=== PATIENT | male | born 1990 | race Caucasian/White ===

== ENCOUNTER 2020-07-24 20:32 | Inpatient (IN) | payer OTHER, SELFPAY ==
--- NOTE | ~2020-07-24 | CT_ITS ---
EXAMINATION: CT abdomen pelvis w con INDICATION: Right lower quadrant pain TECHNIQUE: Computed tomographic images of the abdomen and pelvis were obtained after the administrati on of 100 cc of Omnipaque 350 intravenous contrast. The dose-length product (DLP) was 653.72 mGy-cm. Automated exposure control and iterative reconstruction technique were employed. COMPARISON: None available FINDINGS: The lung bases are clear. The heart size is normal. The liver, spleen, pancreas, gallbladde r, and adrenal glands are normal. The kidneys are unremarkable. The appendix is dilated up to 1.5 cm at its base. There is edematous stranding of the periappendiceal fat. A small volume of pelvic ascite s is noted. There is no free intraperitoneal gas or evidence of bowel obstruction. No pathologically enlarged abdominal or pelvic lymph nodes are identified. A moderate volume of colonic stool is presen t. IMPRESSION: 1. Acute appendicitis, uncomplicated. Recommend surgical evaluation. Reviewed, dictated and finalized at location A.
[2020-07-24 20:35] VITALS: BP 149/86; PULSE 77; RESP 20; TEMP 36.6; O2SAT 100
[2020-07-24 20:54] LABS: Basophils Percent Auto 0.3 % (0.2-1.2); Eosinophils Absolute Auto 0.1 K/mm3 (0-0.3); Eosinophils Percent Auto 0.6 % (0-4.4); Hematocrit 47.3 % (42.0-52.0); Hemoglobin 16.3 g/dL (14.0-18.0); Immature Granulocyte Absolute 0.03 K/mm3 (0.00-0.031); Immature Granulocyte Percent A 0.3 % (0-0.5); Lymphocytes Absolute Auto 2.42 K/mm3 (0.9-3.2); Lymphocytes Percent Auto 22.1 % (18.3-44.2); Mean Corpuscular HGB Conc 34.5 g/dl (32-36); Mean Corpuscular Hemoglobin 30.3 pg (26-34); Mean Corpuscular Volume 87.9 fl (80-100); Mean Platelet Volume 9.4 fl (7.4-10.4); Monocytes Absolute Auto 0.9 K/mm3 (0.1-0.6); Monocytes Percent Auto 7.8 % (2.6-8.5); Neutrophils Absolute Auto 7.5 K/mm3 (1.3-6.7); Neutrophils Percent Auto 68.9 % (45.5-73.1); Platelet Count Result 254 k/mm3 (150-375); Red Blood Count 5.38 M/mm3 (4.6-6.20); Red Cell Distribution Width 12.9 % (11.5-14.5); White Blood Count 10.9 K/mm3 (4.5-10.0)
[2020-07-24 21:06] LABS: Alanine Aminotransferase 11 U/L (4-50); Albumin Level 4.7 g/dL (3.5-5.1); Alkaline Phosphatase 71 U/L (38-126); Anion Gap 7 mmol/L (8-16); Aspartate Amino Transferase 23 U/L (17-59); Bilirubin,Total 0.4 mg/dL (0.2-1.3); Blood Urea Nitrogen 15 mg/dL (9-20); Calcium 9.6 mg/dL (8.4-10.2); Carbon Dioxide 34 mmol/L (22-30); Chloride 101 mmol/L (98-107); Estimated CRCL calculation 115 ml/min; Estimated Glomerular Filt Rate > 60; Glucose 83 mg/dL (75-110); Lipase 86 U/L (23-300); Potassium 4.6 mmol/L (3.4-5.0); Sodium 142 mmol/L (137-145)
--- NOTE | 2020-07-24 22:32 | ED.ABDPAIN ---
HPI - Abdominal Pain General Chief Complaint: Abdominal Pain Stated Complaint: Abd Pain Time Seen by Provider: 07/24/20 22:27 History of Present Illness HPI narrative: RLQ abdomianl pain for the past 2-3 days. Moderate at rest. Worse with movement or pressure. Associated with mild nausea. He has never had this pain before. Previous umbilical hernia repair as a small child. Related Data Home Medications Medication Instructions Recorded Confirmed No Home Medications 07/24/20 07/24/20 Allergies Allergy/AdvReac Type Severity Reaction Status Date / Time No Known Allergies Allergy Verified 07/24/20 22:39 Review of Systems Review of Systems: All systems reviewed & are unremarkable except as noted in HPI and below Constitutional: Constitutional: Denies fever(s) Cardiovascular: Cardiovascular: Denies chest pain Respiratory: Respiratory: Denies dyspnea Gastrointestinal: Gastrointestinal: Reports abdominal pain, Denies constipation, Denies diarrhea, Reports nausea and Denies vomiting Genitourinary: Genitourinary: Denies hematuria and Denies dysuria Musculoskeletal: Musculoskeletal: Denies back pain Neurologic: Denies dizziness and Denies weakness PMFSH Surgical History Surgical History (Updated 07/25/20 @ 02:41 by Virgil Perales MD) H/O umbilical hernia repair Social History Social History (Updated 07/25/20 @ 02:41 by Virgil Perales MD) Smoking status: Never smoker Exam Const: General: healthy appearing, no acute distress and alert Nutritional Appearance: well nourished Orientation/consciousness: patient oriented x3 HENMT: Head: normal to inspection Resp: Effort & Inspection: normal respiratory effort Auscultation: clear to auscultation bilaterally, no rales, no rhonchi and no wheezes Cardio: Jugular venous distension: no JVD Rate: regular rate Rhythm: regular rhythm Heart sounds: no murmurs GI: Inspection: non-distended GI Palp: Yes Soft to palpation and Yes Tenderness to palpation present (GI) (RLQ) Skin: General skin exam: normal color Neuro: General: patient oriented x3, moves all extremities and CN's II-XI intact bilaterally Speech: normal speech Extrem: General: normal to inspection Psych: Appearance: well kempt Affect: normal affect Course Vital Signs Vital signs: Vital Signs Temperature 36.6 C 07/24/20 20:35 Pulse Rate 77 07/24/20 20:35 Respiratory Rate 20 07/24/20 20:35 Blood Pressure 149/86 H 07/24/20 20:35 Pulse Oximetry 100 07/24/20 20:35 Temperature 36.6 C 07/24/20 20:35 Pulse Rate 57 L 07/25/20 01:53 Respiratory Rate 16 07/25/20 01:53 Blood Pressure 121/76 07/25/20 01:53 Pulse Oximetry 97 07/25/20 01:53 MDM - Abdominal Pain Differential Diagnosis Differential diagnosis: Likely acute appendicitis, calculus of kidney and constipation Medical Records Attestation: I reviewed the patient's medical records. Lab Data Attestation: I reviewed the patient's lab results. Result diagrams: 07/24/20 20:38 07/24/20 20:38 Labs: Lab Results 07/24/20 07/24/20 07/24/20 Range/Units 20:38 20:38 22:41 WBC 10.9 H (4.5-10.0) K/mm3 RBC 5.38 (4.6-6.20) M/mm3 Hgb 16.3 (14.0-18.0) g/dL Hct 47.3 (42.0-52.0) % MCV 87.9 (80-100) fl MCH 30.3 (26-34) pg MCHC 34.5 (32-36) g/dl RDW 12.9 (11.5-14.5) % Plt Count 254 (150-375) k/mm3 MPV 9.4 (7.4-10.4) fl Immature Gran % (Auto) 0.3 (0-0.5) % Neut % (Auto) 68.9 (45.5-73.1) % Lymph % (Auto) 22.1 (18.3-44.2) % [place] % (Auto) 7.8 (2.6-8.5) % Eos % (Auto) 0.6 (0-4.4) % Baso % (Auto) 0.3 (0.2-1.2) % Lymph # (Auto) 2.42 (0.9-3.2) K/mm3 [place] # (Auto) 0.9 H (0.1-0.6) K/mm3 Eos # (Auto) 0.1 (0-0.3) K/mm3 Baso # (Auto) 0.0 (0.0-0.1) K/mm3 Abs Immat Gran (auto) 0.03 (0.00-0.031) K/mm3 Absolute Neuts (auto) 7.5 H (1.3-6.7) K/mm3 Absolute Nucleated RBC 0.0 (0.
[2020-07-24 22:37] VITALS: BP 133/80; PULSE 60; RESP 16; O2SAT 99
[2020-07-24 22:53] LABS: Add Urine Microscopic? NO; Appearance Urine Clear (Clear); Bilirubin Urine Negative (Negative); Blood Urine Negative (Negative); Color Urine Yellow (Yellow); Glucose Urine UA Negative (Negative); Ketones Urine Negative (Negative); Leukocyte Esterase Ur Negative LEU/UL (Negative); Mucus Urine Heavy /lpf; Nitrate Urine Negative (Negative); Protein Urine Negative (Negative); RBC Urine 0-2 /hpf (0-2); Specific Grav Ur 1.024 (1.001-1.035); Urobilinogen Urine Negative mg/dL (<2.0); WBC Urine 0-3 /hpf
[2020-07-24 23:30] VITALS: BP 137/73; PULSE 56; RESP 16; O2SAT 99
[2020-07-25] VITALS (12 sets, daily range): BP systolic 110–159; BP diastolic 52–82; PULSE 57–86; RESP 12–20; TEMP 36.4–36.8; O2SAT 94–100; BMI 31.6
[2020-07-25] MEDS: MORPHINE SULFATE (*CRX) 4 MG/ML INJ IV PUSH ×5 (00:46→11:47)
[2020-07-25] MEDS: LACTATED RINGERS 1,000 ML 125 ML IV CONT ×2 (00:47→09:44)
--- NOTE | 2020-07-25 02:05 | PC.NURSE ---
This patient, Jet Ramos, was admitted to [facility] Surg Room 314-01. Patient/family oriented to hospital policies and general routines including ID bracelet, bed and alarms, visiting hours, pain management, procedures, bathroom and other care routines, personal items, smoking policy, room service/diet, and visiting hours. Valuables list has been completed. Information on how to activate the Rapid Response Team has been discussed. Patient/Family are encouraged to report perceived risks to care and to ask questions if they do not understand what they are told or what they should do.
--- NOTE | 2020-07-25 09:30 | PM.IMHP ---
H&P: HPI History of Present Illness Date/Time: 07/25/20 09:30 Chief complaint: Acute appendicitis Narrative: Jet Ramos is a 30 year old male presenting c 2-3 day h/o worsening RLQ abd pain. Pt reports pain initially more mild and diffuse, but now localized to RLQ. Pt reports pain is constant but worse c movement. Pt denies any fevers, chills, nausea, but has had some decreased appetite. Pt denies any bowel changes. Pt denies any previous episodes. Review of Systems Constitutional: Constitutional: Denies anorexia, Denies body ache(s), Denies chills, Denies fatigue, Denies fever(s), Denies headache(s), Denies lethargy, Denies malaise, Reports poor appetite, Denies weight gain and Denies weight loss Eyes: Eyes: Denies change in vision ENT: Denies headache(s), Denies hearing loss and Denies sore throat Cardiovascular: Cardiovascular: Denies chest pain, Denies palpitations and Denies dyspnea Respiratory: Respiratory: Denies cough and Denies dyspnea Gastrointestinal: Gastrointestinal: Reports abdominal pain, Denies change in stool character, Denies constipation, Denies diarrhea, Denies nausea and Denies vomiting Genitourinary: Genitourinary: Denies dysuria, Denies urinary frequency and Denies urinary urgency Musculoskeletal: Musculoskeletal: Reports no additional musculoskeletal complaints Integumentary/Breasts: Skin/Breast: Denies pruritus, Denies lesions and Denies wounds Neurologic: Denies confusion and Denies headache(s) Psychiatric: Psychiatric: Reports no additional psychiatric complaints and Denies confusion Endocrine: Endocrine: Reports no additional endocrine complaints, Denies fatigue and Denies palpitations Hematologic/Lymphatic: Hematologic/Lymphatic: Reports no additional hematologic/lymphatic complaints Allergic/Immunologic: Allergic/Immunologic: Reports no additional allergic/immunologic complaints [facility] Surgical History Surgical History H/O umbilical hernia repair Family History Family History Father Hypertension Social History Social History Smoking status: Never smoker Tobacco type: cigars Alcohol intake: current Drinks per week: 2 Substance use: never Gender identity (if verbalized by the patient): Male Sexual Orientation (if Verbalized by the Patient): Straight or Heterosexual Spiritual care concerns: No Meds Home Medications and Allergies Home Medications Medication Instructions Recorded Confirmed Type No Home Medications 07/24/20 07/24/20 History Allergies Allergy/AdvReac Type Severity Reaction Status Date / Time No Known Allergies Allergy Verified 07/24/20 22:39 Vital Signs Vital Signs - 24 hr 07/24/20 20:35 07/24/20 22:37 07/24/20 23:30 Temperature 36.6 C Pulse Rate 77 60 56 L Respiratory Rate 20 16 16 Blood Pressure 149/86 H 133/80 137/73 Pulse Oximetry 100 99 99 07/25/20 01:53 07/25/20 02:00 07/25/20 06:00 Temperature 36.4 C 36.7 C Pulse Rate 57 L 60 58 L Respiratory Rate 16 20 20 Blood Pressure 121/76 110/60 110/52 L Pulse Oximetry 97 96 98 Exam Const: General: cooperative, healthy appearing, no acute distress and well developed; No confusion Orientation/consciousness: patient oriented x3 and No confusion HENMT: Head: normal to inspection, normocephalic and atraumatic Mouth: Yes Normal oral and palatal mucosa present and Yes moist mucous membranes Teeth and gingiva: dentition normal Eyes: Conjunctivae: conjunctivae normal Pupils: Equal, round and reactive pupils present EOM: EOMs intact bilaterally Neck: Neck: normal visual inspection, full ROM, no lymphadenopathy, trachea midline and supple Lymphatic: no lymphadenopathy noted Chest: Chest palpation & inspection: normal inspection of the chest Resp: Effort & Inspection: normal respiratory effort
[2020-07-25] MEDS: fentaNYL CITRATE INJ (*CRX) 100 MCG/2 ML VIAL 50 MCG IV PUSH (13:23)
[2020-07-25] MEDS: LACTATED RINGERS 1,000 ML 30 ML IV CONT ×2 (13:23→16:10)
[2020-07-25] MEDS: KETOROLAC 15 MG/ML VIAL (*BKC) IV PUSH (13:25)
--- NOTE | 2020-07-25 14:22 | WPDANESEPPF ---
Anes - Initial Pre Proc Eval Procedure: Operation Date: 07/25/20 14:00 Proposed Procedures p Laparoscopic Appendectomy - Richard Thomas DO Date/Time: 07/25/20 14:22 Surgeon: Gayle Spear MD Pre Op Diagnosis: Acute appendicitis Patient Data Age: 30 Gender: M Height: 5 ft 7 in Weight: 91.5 kg Last Vital Signs Temp 36.5 C 07/25/20 13:06 Pulse 66 07/25/20 13:06 Resp 18 07/25/20 13:06 BP 128/70 07/25/20 13:06 Pulse Ox 99 07/25/20 13:06 Allergies Allergy/AdvReac Type Severity Reaction Status Date / Time No Known Allergies Allergy Verified 07/25/20 13:31 Home Medications Medication Instructions Recorded Confirmed Type No Home Medications 07/24/20 07/24/20 History Laboratory Tests 07/24/20 07/24/20 07/24/20 20:38 20:38 22:41 WBC 10.9 K/mm3 H K/mm3 (4.5-10.0) RBC 5.38 M/mm3 M/mm3 (4.6-6.20) Hgb 16.3 g/dL g/dL (14.0-18.0) Hct 47.3 % % (42.0-52.0) MCV 87.9 fl fl (80-100) MCH 30.3 pg pg (26-34) MCHC 34.5 g/dl g/dl (32-36) RDW 12.9 % % (11.5-14.5) Plt Count 254 k/mm3 k/mm3 (150-375) MPV 9.4 fl fl (7.4-10.4) Immature Gran % (Auto) 0.3 % % (0-0.5) Neut % (Auto) 68.9 % % (45.5-73.1) Lymph % (Auto) 22.1 % % (18.3-44.2) [place] % (Auto) 7.8 % % (2.6-8.5) Eos % (Auto) 0.6 % % (0-4.4) Baso % (Auto) 0.3 % % (0.2-1.2) Lymph # (Auto) 2.42 K/mm3 K/mm3 (0.9-3.2) [place] # (Auto) 0.9 K/mm3 H K/mm3 (0.1-0.6) Eos # (Auto) 0.1 K/mm3 K/mm3 (0-0.3) Baso # (Auto) 0.0 K/mm3 K/mm3 (0.0-0.1) Abs Immat Gran (auto) 0.03 K/mm3 K/mm3 (0.00-0.031) Absolute Neuts (auto) 7.5 K/mm3 H K/mm3 (1.3-6.7) Absolute Nucleated RBC 0.0 K/mm3 K/mm3 (0.0-0.012) Nucleated RBC % 0.0 % % (0.0-0.2) Sodium 142 mmol/L mmol/L (137-145) Potassium 4.6 mmol/L mmol/L (3.4-5.0) Chloride 101 mmol/L mmol/L (98-107) Carbon Dioxide 34 mmol/L H mmol/L (22-30) Anion Gap 7 mmol/L L mmol/L (8-16) BUN 15 mg/dL mg/dL (9-20) Creatinine 0.90 mg/dL mg/dL (0.7-1.3) Estim Creat Clear Calc 115 ml/min ml/min Estimated GFR > 60 (59 - ) Glucose 83 mg/dL mg/dL (75-110) Calcium 9.6 mg/dL mg/dL (8.4-10.2) Total Bilirubin 0.4 mg/dL mg/dL (0.2-1.3) AST 23 U/L U/L (17-59) ALT 11 U/L U/L (4-50) Alkaline Phosphatase 71 U/L U/L (38-126) Total Protein 7.0 g/dL g/dL (6.3-8.2) Albumin 4.7 g/dL g/dL (3.5-5.1) Lipase 86 U/L U/L (23-300) Urine Color Yellow (Yellow) Urine Appearance Clear (Clear) Urine pH 6.0 (5.0-9.0) Ur Specific [place] 1.024 (1.001-1.035) Urine Protein Negative mg/dL mg/dL (Negative) Urine Glucose (UA) Negative mg/dL mg/dL (Negative) Urine Ketones Negative mg/dL mg/dL (Negative) Ur Blood (Man) Negative (Negative) Urine Nitrate Negative (Negative) Urine Bilirubin Negative (Negative) Urine Urobilinogen Negative mg/dL mg/dL (<2.0) Leukocyte Esterase Rfl Negative YARELI/UL YARELI/UL (Negative) Urine RBC 0-2 /hpf /hpf (0-2) Urine WBC 0-3 /hpf /hpf Urine Mucus Heavy /lpf H /lpf Patient hx anesthesia problems: none Family hx anesthesia problems: none [facility] Past Medical History Medical History (Updated 07/25/20 @ 14:22 by Cain Meadows MD) Obesity Surgical History Surgical History H/O umbilical hernia repair Family History Family History Father Hypertension Soci
--- NOTE | 2020-07-25 14:47 | WPDHPUPDATE1 ---
History and Physical Update Update Date/Time: 07/25/20 14:47 History and Physical has been reviewed, including an updated exam of the patient. There are NO changes in the patient's condition. Risks, benefits, and alternatives have been discussed and questions answered. Patient agrees to proceed with procedure.
[2020-07-25] MEDS: BUPIVACAINE/EPINEPHRINE 0.5% 10 ML VIAL 30 ML INFILTRATE (15:32)
--- NOTE | 2020-07-25 16:10 | PM.PROC ---
Procedure Note - Detailed Date of procedure: 07/25/20 Pre-op diagnosis: Acute appendicitis Post-op diagnosis: same Procedure performed: Laparoscopic Appendectomy Description of procedure: Procedure as well as risks, benefits, and alternatives were explained to the patient. The patient agreed to proceed. Written consent was obtained and placed in chart prior to procedure. The patient was brought back to surgical suite. He was placed supine on operating table. Time-out was done to confirm the patient and procedure. The patient was then intubated by the Anesthesia Department. His abdomen was prepped and draped in sterile fashion using chlorhexidine prep. A 12 mm incision was made at the inferior portion of the umbilicus. Blunt dissection was carried out down to the linea alba. The linea alba was then incised using a 15 blade scalpel. Then bluntly entered into the peritoneal cavity. A 12 mm trocar was then inserted, and carbon dioxide insufflation was used to create a pneumoperitoneum. The camera was inserted and the abdomen was inspected. No immediate abnormalities were identified. The patient was then placed in slight Trendelenburg position and rotated to the left. A 5 mm incision was made in the suprapubic region in midline and a 5 mm trocar was inserted under direct visualization. A 5 mm incision was made in the left lower quadrant and a 5 mm trocar was inserted under direct visualization. The right lower quadrant was carefully inspected. The cecum was identified and then this was traced back to the appendix. The appendix was identified and grasped at the mesoappendix and lifted anteriorly. Careful blunt dissection was carried out at the base of the appendix through the mesoappendix using a [place] grasper. An Endo-JUAN CARLOS 45 mm blue load stapler was then advanced across the base of the appendix and clamped and fired. A white reload was then clamped across the mesoappendix and fired. This freed up our appendix completely. It was then placed in an EndoCatch bag and removed through the left lower quadrant port. The staple lines were then inspected. Hemostasis appeared adequate and the staple lines appeared secure. The area was then irrigated with sterile saline. The pelvis was then carefully inspected and irrigated with sterile saline as well and the remainder of the abdomen was carefully inspected. The patient was then flattened out in bed. One final inspection was made around the abdominal cavity and no other abnormalities were seen. The ports were then removed under direct visualization. The camera was removed and the pneumoperitoneum was released. The fascia of the umbilical incision was reapproximated using an 0 Vicryl [id number] suture. 0.5% bupivacaine with epinephrine was infiltrated locally around each of the incisions. The skin of the incisions was then approximated using 4-0 Monocryl subcuticular suture and Exofin glue was applied on top. The patient was then awakened from anesthesia, extubated, and transferred to Recovery. Anesthesia: GETA and local (0.5% bupivicaine with epi) Surgeon: Richard Thomas DO Estimated blood loss (mL): 20 Pathology: yes (Appendix) Complications: No immediate complications Condition: stable Disposition: floor Findings: This is a 30-year-old man who presented to the emergency department overnight with right lower quadrant abdominal pain for the past 2-3 days. His pain began as vague mid abdominal pain that eventually localized to the right lower quadrant. He felt somewhat feverish about 2-3 days ago but was only running a 99 degree temperature. He has not noticed a fever since then. His bowels have been normal. In the emergency department he was noted to have right lower quadrant tenderness with guarding and CT abdomen and pelvis showed evidence of acute appendicitis. He was then admitted and placed on broad-spectrum IV antibiotics. Decision was made to proceed with laparoscopic appendectomy,
[2020-07-25] MEDS: fentaNYL CITRATE INJ (*CRX) 100 MCG/2 ML VIAL 25 MCG IV PUSH (16:53)
--- NOTE | 2020-07-25 17:17 | PC.NURSE ---
Patient returned from surgery per stretcher.
[2020-07-25] MEDS: HYDROcodone/acetaminophen (*CRX) 5-325 MG TABLET 1 TAB PO (17:57)
--- NOTE | 2020-08-01 15:15 | PM.DS ---
DS: Admitting Diagnosis Admitting Diagnosis Admitting Diagnosis: Acute appendicitis DS: Discharge Diagnosis Discharge Diagnosis (1) Acute appendicitis: Qualifiers: Acute appendicitis type: with localized peritonitis Appendicitis abscess presence: without abscess Appendicitis gangrene presence: without gangrene Appendicitis perforation presence: without perforation Qualified Code(s): K35.30 - Acute appendicitis with localized peritonitis, without perforation or gangrene Code(s): K35.80 - Unspecified acute appendicitis Status: Acute DS: Summary Hospital Course Reason for hospitalization: acute appendicitis. Hospital Course: This is a 30-year-old man who presented to the emergency department with right lower quadrant abdominal pain. He was found to have evidence of acute appendicitis on CT. There was no evidence of perforation or abscess. He had only been experiencing pain for about 2 days prior to presentation. He was taken to the OR for laparoscopic appendectomy on 07/25. He had been started on broad-spectrum IV antibiotics. Surgery was uncomplicated and he was returned to the surgical floor postoperatively. His diet and activity were advanced as tolerated. That evening his pain was controlled and he was tolerating a regular diet. He was discharged home. Status at Discharge Functional status at discharge: independent ambulation Overall status at discharge: patient is progressing back to baseline Time Spent with Patient Time attestation: Total time spent providing and/or coordinating discharge services: Time spent: Less than 30 minutes Exam GI: Inspection: non-distended GI Palp: Yes Soft to palpation DS: Data Data Completed and Pending Completed studies during hospitalization: Pending at discharge 07/25/20 15:31 Surgical [PTH] Routine Imaging Radiologist's impression: ITS Impressions Abdomen/Pelvis CT 07/24/20 23:20 IMPRESSION: 1. Acute appendicitis, uncomplicated. Recommend surgical evaluation. Discharge Plan Discharge Attending physician on discharge: Richard Ventura Consulting providers: Dhiraj Mendez Discharging Clinician: Richard Ventura Anticipated Discharge Date/Time: 07/25/20 19:00 Patient Disposition: Home, Self-Care Activity: other - see discharge instructions Diet: other - see discharge instructions Wound Care Instructions: other - see discharge instructions Discharge Instructions: DISCHARGE INSTRUCTION SHEET FOR HERNIA, GALLBLADDER AND APPENDIX SURGERIES DR. VENTURA PATIENT TO TAKE HOME 1. May shower in 24 hours, no soaking in bath x 2weeks. 2. Call office for: Wound increasingly painful or bleeding Vomiting Fever of greater than 101 degrees 3. If no bowel movement for three days, take 1 oz. (30 ml) Milk of Magnesia or MiraLax 17g 1 to 2 times daily. 4. No heavy lifting > 10-15 pounds x 2 weeks for hernia repairs and 2 weeks for laparoscopic cholecystectomy or appendectomy. 5. No driving for 3 days or while taking narcotic pain medications. 6. Ice to surgical site for 48 hours (30 min on, then 30 min off). 7. Up walking 10-30 minutes three times per day. 8. Resume previous home medications. 9. Follow-up 10-14 days in office for wound check or as previously scheduled. ([phone]) 10. Oral pain medications prescription to be sent to pharmacy. Take Tylenol 500mg every 6 hours and Ibuprofen 600mg every 6 hours for the first 2 days, then as needed. 11. NUTRITION: Start out by drinking fluids and increase your diet as tolerated. If you experience nausea, try dry toast, crackers, and 7-UP. If nausea or vomiting persists, contact your surgeon?s office. 12. Gallbladders-Low Fat Diet for 2 weeks (send care note of low fat diet) 13. Inguinal Hernias-wear scrotal support for 48 hours 14. Abdominal Hernias-if sent home with abdominal binder
== END 2020-07-25 19:02 | disposition home or self-care (01) | DRG 343 ==
LOC: ANHED 22:50 → ANH3MEDSUR 07-25 02:43
PROVIDERS: Emergency Medicine; Admitting Provider Surgery; Emergency Provider Emergency Medicine; Visit Provider Surgery
PROC: 0DTJ4ZZ Resection of Appendix, Percutaneous Endoscopic Approach (ICD-10-PCS; CPT 44970; principal; 2020-07-25 14:00)
DX: K35.30 Acute appendicitis with localized peritonitis, without perforation or gangrene (principal)
CPT/HCPCS: 36415; 74177; 80053; 81003; 83690; 85025; 88304; 96365; 99285; A9270; J0330; J1100; J1885; J2250; J2270; J2405; J2543; J2704; J3010; J7120; Q9967

== ENCOUNTER 2022-08-07 16:26 | Emergency (ER) | payer OTHER, SELFPAY ==
[2022-08-07] VITALS (22 sets, daily range): BP systolic 114–161; BP diastolic 61–95; PULSE 74–97; RESP 16–18; TEMP 36.4; O2SAT 96–100
--- NOTE | ~2022-08-07 | XR_ITS ---
EXAMINATION: XR elbow LT min 3V DATE: 08/07/2022 17:39 INDICATION: Left elbow pain post longboard accident TECHNIQUE: Anteroposterior, two oblique and lateral views of the left elbow were obtained. COMPARISON: None. FINDINGS: Alignment is normal. No fracture or joint effusion. Joint spaces are normal. Soft tissues are unremar kable. IMPRESSION: 1. Negative left elbow radiographs. Reviewed, dictated and finalized at location A.
--- NOTE | ~2022-08-07 | XR_ITS ---
EXAMINATION: XR wrist LT min 3V DATE: 08/07/2022 17:39 INDICATION: Left wrist pain post longboard accident TECHNIQUE: Posteroanterior, ulnar deviation, oblique, and lateral views of the left wrist were obtain ed. COMPARISON: none FINDINGS: 2 mm ulnar minus variance. Alignment is otherwise normal. There is a very small ossific density proje cting over the junction of the radiocarpal and scapholunate joint spaces suggesting a displaced fract ure fragment of indeterminate origin. There is suggestion of subtle linear lucencies projecting acros s the articular cortex at the radial side of the distal radius suspicious but not definitive for frac ture. Joint spaces are normal. Mild soft tissue swelling about the carpus. IMPRESSION: 1. Very small likely displaced fracture fragment of indeterminate origin projecting over the junction of the radiocarpal and scapholunate joint spaces. A couple subtle linear lucencies projecting across the articular cortex at the radial side of the distal radius suspicious but not definitive for fract ure which could represent the etiology for the fracture fragment. Alternatively this could represent an avulsion of the scaphoid or lunate footplate of the scapholunate ligament. Would consider further evaluation with noncontrast CT of the left wrist. Reviewed, dictated and finalized at location A. IMPRESSION: 1. Very small likely displaced fracture fragment of indeterminate origin projec ting over the junction of the radiocarpal and scapholunate joint spaces. A coup le subtle linear lucencies projecting across the articular cortex at the radial side of the distal radius suspicious but not definitive for fracture which cou ld represent the etiology for the fracture fragment. Alternatively this could r epresent an avulsion of the scaphoid or lunate footplate of the scapholunate li gament. Would consider further evaluation with noncontrast CT of the left wrist .
--- NOTE | ~2022-08-07 | XR_ITS ---
EXAMINATION: XR chest 2V, XR shoulder LT min 2V DATE: 08/07/2022 17:39 INDICATION: Left clavicle and rib pain post fall TECHNIQUE: 1. PA and lateral views of the chest were obtained. 2. AP internally rotated, AP externally rotated, Grashey and transscapular Y views of the left should er were obtained. COMPARISON: None FINDINGS: Chest: The lungs are clear with no focal airspace opacities, pulmonary edema, pleural effusion or pneumothor ax. The cardiomediastinal silhouette is normal. No rib fractures identified. Left shoulder: Joint space widening and cephalad dislocation of the lateral head of the left clavicle at the left ac romioclavicular joint with increased coracoclavicular distance consistent with tear of the coracoclav icular ligament. Glenohumeral alignment and joint spaces are normal. No fracture. IMPRESSION: 1. No acute cardiopulmonary disease or evident rib fractures. 2. Type III acromioclavicular joint separation with cephalad dislocation and tear of the coracoclavic ular ligament. Reviewed, dictated and finalized at location A. IMPRESSION: 1. No acute cardiopulmonary disease or evident rib fractures. 2. Type III acromioclavicular joint separation with cephalad dislocation and te ar of the coracoclavicular ligament.
--- NOTE | ~2022-08-07 | XR_ITS ---
EXAMINATION: XR foot RT min 3V DATE: 08/07/2022 17:39 INDICATION: Right heel pain post long board accident TECHNIQUE: Dorsoplantar, two oblique and lateral views of the right foot were obtained. COMPARISON: None. FINDINGS: Alignment is normal. No fracture. Joint spaces are normal. Soft tissues are unremarkable. No ankle brian int effusion. IMPRESSION: 1. Negative right foot radiographs. Reviewed, dictated and finalized at location A.
--- NOTE | ~2022-08-07 | CT_ITS ---
EXAMINATION: CT wrist LT wo con DATE: 08/07/2022 18:34 INDICATION: Fracture evident on prior left wrist radiographs. TECHNIQUE: High resolution computed tomography (CT) of the left wrist was performed without intraveno us contrast. Additional sagittal and coronal reconstructions were performed. Automated exposure contr ol and iterative reconstruction technique were employed. The dose-length product was 359.88 mGy-cm. COMPARISON: Left wrist radiographs dated 08/07/2022 FINDINGS: Tiny minimally displaced avulsion fracture at the scaphoid footplate of the dorsal scapholunate ligam ent. No other fractures identified. Specifically no fractures at the distal radius. Alignment remains normal. Joint spaces are normal. Soft tissue swelling at the dorsal aspect of the carpus. IMPRESSION: 1. Tiny minimally displaced avulsion fracture at the scaphoid footplate of the dorsal scapholunate li gament. Reviewed, dictated and finalized at location A. IMPRESSION: 1. Tiny minimally displaced avulsion fracture at the scaphoid footplate of the dorsal scapholunate ligament.
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
[2022-08-07] MEDS: ONDANSETRON INJ 4 MG/2 ML VIAL IV PUSH (17:44)
[2022-08-07] MEDS: MORPHINE SULFATE (*CRX) 4 MG/ML INJ IV PUSH (17:44)
[2022-08-07] MEDS: KETOROLAC 30 MG/ML VIAL (*BKC) IV PUSH (18:42)
[2022-08-07] MEDS: HYDROcodone/acetaminophen (*CRX) 5-325 MG TABLET 1 TAB PO (19:55)
== END 2022-08-07 20:20 | disposition home or self-care (01) ==
PROVIDERS: Emergency Provider Emergency Medicine
DX: S43.102A Unspecified dislocation of left acromioclavicular joint, initial encounter (principal); S62.002A Unspecified fracture of navicular [scaphoid] bone of left wrist, initial encounter for closed fracture; S40.212A Abrasion of left shoulder, initial encounter; S50.312A Abrasion of left elbow, initial encounter; S50.311A Abrasion of right elbow, initial encounter; S80.212A Abrasion, left knee, initial encounter; S80.211A Abrasion, right knee, initial encounter; S50.812A Abrasion of left forearm, initial encounter; S99.921A Unspecified injury of right foot, initial encounter; V00.131A Fall from skateboard, initial encounter; Y93.51 Activity, roller skating (inline) and skateboarding
CPT/HCPCS: 29125; 71046; 73030; 73080; 73110; 73200; 73630; 96374; 96375; 99284; A4565; A9270; J1885; J2270; J2405

== ENCOUNTER 2025-07-29 14:27 | Emergency (ER) | payer OTHER, SELFPAY ==
--- NOTE | ~2025-07-29 | CT_ITS ---
CT chest abdomen pelvis w con HISTORY: R rib/R sided abd pain, fell on skateboard . COMPARISON: None. TECHNIQUE: Axial images of the chest, abdomen and pelvis were obtained without and with infusion of 100 Isovue 300. FINDINGS: CT CHEST: The examination demonstrates no pulmonary nodules, infiltrates and/or effusions. No pathologically enlarged hilar or mediastinal lymphadenopathy is seen. Cardiac size and mediastinal configuration are normal in appearance. The pulmonary artery and thoracic aorta are normal in caliber and patency. Osseous structures are intact. The visualized organs of the upper abdomen are unremarkable. IMPRESSION: No acute cardiopulmonary process. No pathologic enhancement is noted. No pathologically enlarged mediastinal lymphadenopathy is noted. CT abdomen and pelvis with contrast: The liver parenchyma is unremarkable. No intrahepatic mass or ductal dilatation is evident. The gallbladder is unremarkable. The pancreas and spleen are normal in appearance. The adrenal glands are symmetric in size. The kidneys demonstrate symmetric uptake and excretion of contrast. No cystic mass is evident. There is no solid mass. There is no hydronephrosis. The bladder and rectum are normal. No free intraperitoneal fluid or air is evident. There is no significant retroperitoneal lymphadenopathy. The aorta, visceral vessels and renal arteries demonstrate normal caliber and patency. The lower thoracic and lumbar vertebrae are in normal alignment. IMPRESSION: No acute abnormality is noted in the abdomen and pelvis. All CT scans at this facility are performed using low dose modulation techniques as appropriate to perform exam including the following: automated exposure control; use of iterative reconstruction technique; adjustment of the mA and/or kV according to patient size (this includes techniques or standardized protocols for targeted exams where dose is matched to indication/reason for exam) Reviewed, dictated and finalized at location S. IMPRESSION: No acute cardiopulmonary process. No pathologic enhancement is noted. No pathologically enlarged mediastinal lymphadenopathy is noted. CT abdomen and pelvis with contrast: The liver parenchyma is unremarkable. No intrahepatic mass or ductal dilatation is evident. The gallbladder is unremarkable. The pancreas and spleen are brennen l in appearance. The adrenal glands are symmetric in size. The kidneys demonstrate symmetric uptake and excretion of contrast. No cystic m ass is evident. There is no solid mass. There is no hydronephrosis. The bladder and rectum are normal. No free intraperitoneal fluid or air is evid ent. There is no significant retroperitoneal lymphadenopathy. The aorta, visceral vessels and renal arteries demonstrate normal caliber and p atency. The lower thoracic and lumbar vertebrae are in normal alignment. IMPRESSION: No acute abnormality is noted in the abdomen and pelvis. All CT scans at this facility are performed using low dose modulation techniqu es as appropriate to perform exam including the following: automated exposure c ontrol; use of iterative reconstruction technique; adjustment of the mA and/or kV according to patient size (this includes techniques or standardized protocol s for targeted exams where dose is matched to indication/reason for exam)
[2025-07-29 15:27] VITALS: BP 177/63; PULSE 105; RESP 20; TEMP 36.6; O2SAT 100
--- OUTSIDE RECORDS SUMMARY | 2025-07-29 15:28 | XMS_ITS | Clinical Summary ---
Author Organization [facility] Address [address] 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 This disclosure is being madepursuant to the Care Everywhere program and may not contain all information available regarding this patient. Last updated 18.[facility] Social History Tobacco Use Types Packs/Day Years Used Date Smoking Tobacco: Never Assessed Sex and Gender Information Value Date Recorded Sex Assigned at Not on file Legal Sex Male 5:38 AM [employer] Gender Identity Not on file Sexual Orientation Not on file Plan of Treatment Health Maintenance Due Date Last Done Comments HIV SCREENING 2007 HEPATITIS C SCREENING 05/01/2010 DTAP/TDAP/TD VACCINES (1 - Tdap) 2011 HEPATITIS B VACCINE (1 of 3 - 19+ 3-dose series) 2011 HPV VACCINE (1 - 3-dose SCDM series) 2019 DEPRESSION SCREENING 10/17/2024 COVID-19 VACCINE ( season) 2025 INFLUENZA VACCINE (#1) 2025 7, 07/13/2016, 07/22/2015, Additional history exists ZOSTER VACCINE (1 of 2) 2042 HIB VACCINE Aged Out No longer eligi ble based on patient's age to complete this topic MENINGOCOCCAL (Group B) VACCINE SHARED DECISION-MAKING Aged Out No longer eligible based on patient's age to complete this topic MENINGOCOCCAL GROUPS A/C/Y/W VACCINE Aged Out No longer eligible based on patient's age to complete this topic PNEUMOCOCCAL VACCINE Aged Out No long er eligible based on patient's age to complete this topic [place] [address]
--- OUTSIDE RECORDS SUMMARY | 2025-07-29 15:28 | XMS_ITS | Clinical Summary ---
Author Organization [facility] (FORM[facility])[3] [employer] [place] Address [address] [place] [id number] Care Team Providers Care Appliquer Zigzag Name Role Phone Unavailable Primary Care Provider Unavailabl e Allergies No known active allergies Medications No known medications Active Problems No known active problems Immunizations Immunization Administration Dates Next Due (ADACEL/BOOSTRIX)(10 YR UP) TDAP VACCINE, 0.5ML, IM 08/17/2014 (IPOL)(6 WKS AND UP) POLIOVI CHAPIN VACCINE, INACTIVATED (IPV), 3 DOSE, SUBCUT OR IM 08/17/2014 (TYPHIM )(2 YRS UP) TYPHOI D CAPSULAR POLYSACCHARIDE VACCINE, 0.5 ML, IM 03/05/2015 Adenovirus Vaccine Type 4 08/17/2014 Hepatitis A Vaccine 03/05/2015,08/17/2014 INFLUENZA VACCINE QUADRIVALENT 2-49 YRS NASAL INFLUENZA VACCINE QUADRIVALENT 3 YR UP PF IM 09/2022 INFLUENZA VACCINE QUADRIVALENT 6 MOS UP PF IM ,07/13/2016 Influenza Seasonal Unspecified Formulation PF IM 07/22/2015 Meningococcal Polysaccharide Vaccine SQ 08/17/20 14 Family History Medical History Relation Name Comments No Known Problems Brother No Known Problems Daughter Diabetes Father Heart Attack Father Hypertension Father No Known Problems Mother No Known Problems Sister Relation Name Status Comments Brother Alive Daughter Alive Father Alive Mother Alive Sister Alive Social History Tobacco Use Types Packs/Day Years Used Date Smoking Tobacco: Some Days Cigars Smokeless Tobacco: Never Alcohol Use Standard Drinks/Week Comments Yes 0 (1 standard drink = 0.6 oz pur e alcohol) Social Sex and Gender Information Value Date Recorded Sex Assigned at Not on file Legal Sex Male 12:30 PM CDT Gender Identity Not on file Sexual Orientation Not on file Last Filed Vital Signs Vital Sign Reading Time Taken Comments Blood Pressure 110/70 02/21/2023 9:12 AM CDT Pulse 70 02/03/2022 8:48 AM CDT Temperature 36.6 C (97.9 F) 02/03/2022 8:48 AM CDT Respiratory Rate - - Oxygen Saturation 98% 02/03/2022 8:48 AM CDT Inhaled Oxygen Concentration - - Weight 82.6 kg (182 lb) 02/21/2023 9:12 AM CDT Height 172.7 cm (5' 8) 02/21/2023 9:12 AM CDT Body Mass Index 27.67 02/21/2023 9:12 AM CDT Plan of Treatment Health Maintenance Due Date Last Done Comments HEPATITIS B VACCINES (1 of 3 - 19+ 3-dose series) 2011 HPV VACCINES (1 - 3-dose SCD M series) 2019 DTAP/TDAP/TD VACCINES (2 - T d or Tdap) 08/17/2024 08/17/2014 INFLUENZA VACCINE (#1) 2025 2, 08/23/2017, 07/13/2016, Additional history exists Insurance [employer]
--- NOTE | 2025-07-29 15:32 | ED_ITS ---
HPI - General Adult General Chief complaint: Trauma <TSERING Velarde Last Filed: 07/29/25 15:39> Stated complaint: fell, right rib pain <TSERING Velarde Last Filed: 07/29/25 15:39> Time Seen by Provider: 07/29/25 15:25 <TSERING Velarde Last Filed: 07/29/25 15:39> Focused HPI: Patient is a 35-year-old who presents the ED with report of right rib pain. Patient reports he was skateboarding and fell while dropping into a half pipe. Landed on his R side on his skateboard. C/o pain to his R ribs, R upper abdomen. Reports spasms of pain. Worse with any type of movement. Denies feeling short of breath. Denied HI or LOC. Took ibuprofen prior to arrival. GENERAL: Uncomfortable-appearing, well-nourished, and in no acute distress. HEAD: Normocephalic, atraumatic. CHEST: Clear to auscultation. ?No respiratory distress. Lung sounds are equal bilaterally HEART: Regular rate and rhythm.? MSK: Moderate TTP throughout R anterolateral rib cage w/o palpable deformity. ABD: Mild TTP in RUQ, no rebound NEURO: ?Alert and oriented x3. Patient screened in triage and initial orders placed.? ?Additional care and disposition to be based upon?diagnostic testing and treatment. <TSERING Velarde Last Filed: 07/29/25 15:39> Source: patient <TSERING Velarde Last Filed: 07/29/25 15:39> Mode of arrival: ambulatory <TSERING Velarde Last Filed: 07/29/25 15:39> Limitations: no limitations <TSERING Velarde Last Filed: 07/29/25 15:39> Related Data Allergies/adverse reactions: Allergies Allergy/AdvReac Type Severity Reaction Status Date / Time No Known Allergies Allergy Verified 07/29/25 14:27 <TSERING Velarde Last Filed: 07/29/25 15:39> [facility] Past Medical History Medical History: Medical History Avulsion fracture of left wrist Contusion of foot, right Left shoulder pain No pertinent past medical history <Jennifer Guillaume PA-C - Last Filed: 07/29/25 15:39> Surgical History Surgical History: Surgical History H/O umbilical hernia repair History of laparoscopic appendectomy 07/25/2020 <Jennifer Guillaume PA-C - Last Filed: 07/29/25 15:39> Family History Family History: Family History Father Hypertension Other Arthritis Depression Diabetes mellitus Heart disease <Jennifer Guillaume PA-C - Last Filed: 07/29/25 15:39> Social History Social History: Social History Smoking status: Never smoker Alcohol intake: current Drinks per week: 2 Substance use: never Living arrangements: with family Occupation/Education: occupation Gender identity (if verbalized by the patient): Male Sexual Orientation (if Verbalized by the Patient): Straight or Heterosexual Spiritual care concerns: No <Jennifer Guillaume PA-C - Last Filed: 07/29/25 15:39> Exam Narrative: APPEARANCE: No apparent distress. Head: atraumatic. EYES: EOMI, NOSE: Atraumatic NECK: Trachea midline RESPIRATORY: No increased rate of breathing clear to auscultation CARDIOVASCULAR: RRR, no peripheral edema ABDOMINAL: Non-distended soft nontender MUSCULOSKELETAl: Tenderness over the right anterior ribcage without crepitus NEURO: Alert. Moving 4/4 extremities SKIN:: Warm, dry. Normal color PSYCHIATRIC: Normal affect <Tk Antoine MD - Last Filed: 07/29/25 20:19> Course Vital Signs Vital signs: Vital Signs Temperature 97.8 F 07/29/25 15:27 Pulse Rate 105 H 07/29/25 15:27 Respiratory Rate 20 07/29/25 15:27 Blood Pressure 177/63 H 10/13/25 15:27 Pulse Oximetry 100 07/29/25 15:27 Oxygen Delivery Room Air 07/29/25 15:27 Temperature 98.1 F 07/29/25 19:25 Pulse Rate 81 07/29/25 19:25 Respiratory Rate 14 07/29/25 19:25 Blood Pressure 153/87 H 07/29/25 19:25 Pulse Oximetry 100 07/29/25 19:25 Oxygen Delivery Room Air 07/29/25 19:23 <Jennifer Guillaume PA-C - Last Filed: 07/29/25 15:39> Vital Signs Temperature 97.8 F 07/29/25 15:27 Pulse Rate 105 H 07/29/25 15:27 Respiratory Rate 20 07/29/25 15:27 Blood Pressure 177/63 H 07/29/25 15:27 Pulse Oximetry 100 07/29/25 15:27 Oxygen Delivery Room Air 07/29/25 15:27 Temperature 98.1 F 07/29/25 19:25 Pulse Rate 81 07/29/25 19:25 Respiratory Rate 14 07/29/25 19:25 Blood Pressure 153/87 H 07/29/25 19:25 Pulse Oximetry 100 07/29/25 19:25 Oxygen Delivery Room Air 07/29/25 19:23 <Tk Antoine MD - Last Filed: 07/29/25 20:19> Medical Decision Making MDM Narrative Medical decision making narrative: MSE by SUSANNE in triage. <Jennifer Guillaume PA-C - Last Filed: 07/29/25 15:39> MSE by SUSANNE in triage. -Course: 35-year-old male presenting after a skateboarding incident. He has tenderness over the right anterior ribcage. No abdominal tenderness. No nausea vomiting. No difficulty breathing with clear lung sounds. CT chest abdomen p albert negative for acute traumatic injuries. Patient likely has a rib contusion. He will be discharged with pain medication and incentive spirometer. I discussed that he had a clear CT but they are not 100% perfect and if he develops any new symptoms or worsening pain he should return to the ER for re- evaluation immediately -DDX includes but is not limited to: Rib contusion, rib fracture, pneumothorax, lacerated liver <Tk Antoine MD - Last Filed: 07/29/25 20:19> Vital Signs Vital Signs: Vital Signs Temperature 97.8 F 07/29/25 15:27 Pulse Rate 105 H 07/29/25 15:27 Respiratory Rate 20 07/29/25 15:27 Blood Pressure 177/63 H 07/29/25 15:27 Pulse Oximetry 100 07/29/25 15:27 Oxygen Delivery Room Air 07/29/25 15:27 Temperature 98.1 F 07/29/25 19:25 Pulse Rate 81 07/29/25 19:25 Respiratory Rate 14 07/29/25 19:25 Blood Pressure 153/87 H 07/29/25 19:25 Pulse Oximetry 100 07/29/25 19:25 Oxygen Delivery Room Air 07/29/25 19:23 <Jennifer Guillaume PA-C - Last Filed: 07/29/25 15:39> Vital Signs Temperature 97.8 F 07/29/25 15:27 Pulse Rate 105 H 07/29/25 15:27 Respiratory Rate 20 07/29/25 15:27 Blood Pressure 177/63 H 07/29/25 15:27 Pulse Oximetry 100 07/29/25 15:27 Oxygen Delivery Room Air 07/29/25 15:27 Temperature 98.1 F 07/29/25 19:25 Pulse Rate 81 07/29/25 19:25 Respiratory Rate 14 07/29/25 19:25 Blood Pressure 153/87 H 07/29/25 19:25 Pulse Oximetry 100 07/29/25 19:25 Oxygen Delivery Room Air 07/29/25 19:23 <Tk Antoine MD - Last Filed: 07/29/25 20:19> Discharge Plan Discharge Clinical Impression: Contusion of rib <Jennifer Guillaume PA-C - Last Filed: 07/29/25 15:39> Patient Disposition: Home <TSERING Velarde Last Filed: 07/29/25 15:39> Condition: Stable <TSERING Velarde Last Filed: 07/29/25 15:39> Instructions: Antibiotic Form, Rib Contusion (ED) <TSERING Velarde Last Filed: 07/29/25 15:39> Additional Instructions: You were seen after a skateboarding accident. You have bruised her ribs. Please use the prescribed medications as directed. Please follow-up your primary care physician in 5-7 weeks. Use incentive spirometer 10 times an hour while awake until pain improves. Your CT here was negative for acute injuries, however they are not 100% perfect. If you feel your pain is getting worse or you develop any new symptoms such as shortness of breath, nausea vomiting or abdominal pain please return ED for re- evaluation. <Jennifer Guillaume PA-C - Last Filed: 07/29/25 15:39> Patient Language: Vietnamese <Jennifer Guillaume PA-C - Last Filed: 07/29/25 15:39> Prescriptions: New ibuprofen 800 mg tablet 800 mg PO TID PRN (Reason: pain) 7 Days Qty: 21 0RF acetaminophen 500 mg tablet 1,000 mg PO TID PRN (Reason: becca) 7 Days Qty: 42 0RF methocarbamol 750 mg tablet 1,500 mg PO TID Qty: 35 0RF lidocaine 5 % adhesive patch,medicated 1 patch topical DAILY Qty: 15 0RF Rx Instructions: leave on most painful area for up to 12 hrs <Jennifer Guillaume PA-C - Last Filed: 07/29/25 15:39> Follow-up/Referrals: Kayley Boothe MD [Primary Care Provider, Family Practice] - 1 Week Referral Note: Rib contus <Jennifer Guillaume PA-C - Last Filed: 07/29/25 15:39>
[2025-07-29 15:40] VITALS: BP 140/94; PULSE 98; RESP 14; O2SAT 100
[2025-07-29] MEDS: CYCLOBENZAPRINE HCL 5 MG TABLET PO (15:40)
[2025-07-29] MEDS: HYDROcodone/acetaminophen (*CRX) 5-325 MG TABLET 1 TAB PO (15:40)
[2025-07-29 19:23] VITALS: BP 154/87; PULSE 81; RESP 14; TEMP 36.9; O2SAT 100
[2025-07-29 19:25] VITALS: BP 153/87; PULSE 81; RESP 14; TEMP 36.7; O2SAT 100
[2025-07-29] MEDS: ACETAMINOPHEN 500 MG TABLET 1000 MG PO (19:37)
[2025-07-29] MEDS: KETOROLAC 30 MG/ML VIAL (*BKC) IM (19:37)
[2025-07-29] MEDS: LIDOCAINE 5% PATCH 1 PATCH TRANSDERM (19:38)
--- OUTSIDE RECORDS SUMMARY | 2025-07-29 20:39 | XMS_ITS | Clinical Summary ---
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
[2025-07-29 20:47] VITALS: BP 135/78; PULSE 78; RESP 16; TEMP 37.1; O2SAT 98
[2025-07-31 14:24] LABS: Estimated CRCL calculation 76 ml/min; Estimated Glomerular Filt Rate > 60
== END 2025-07-29 20:49 | disposition home or self-care (01) ==
LOC: ANHED 20:37
PROVIDERS: Emergency Provider Emergency Medicine; PCP Family Medicine
DX: S20.219A Contusion of unspecified front wall of thorax, initial encounter (principal); W17.89XA Other fall from one level to another, initial encounter; Y93.51 Activity, roller skating (inline) and skateboarding
CPT/HCPCS: 36415; 71260; 74177; 82565; 96372; 99284; A9270; J1885; Q9967